=== PATIENT | male | born 1930 | race Caucasian/White ===

== ENCOUNTER 2017-04-18 09:38 | Outpatient (CLI) | payer MEDICARE ==
--- NOTE | 2017-05-13 14:14 | EEG ---
Referring Physician: DR. MARYCRUZ MIRANDA EEG # [id number] PROCEDURE: Outpatient electroencephalogram NAME OF PATIENT: Drew Hernandez DATE EEG DONE: 04/18/2017. INDICATION: New onset seizure EEG CLASSIFICATION: DYS 1, mild diffuse slowing REPORT: This is a 22-channel digital EEG recording utilizing 10-20 international electrode placement system on a patient who presents with new onset seizure with history of stroke with left-sided weakness. During wakefulness, the background activity consists predominantly of low to moderate amplitude dominant theta rhythm, 6-7 Hz. It is symmetric and reactive. This activity is penetrated occasionally by low amplitude fast beta activity and with myogenic activity representing frontalis and temporalis muscles bilaterally. DROWSINESS AND SLEEP: Subject is able to attain some drowsiness with slower theta activity and delta activity. There is no sleep recorded during this EEG. There is no consistent asymmetry or paroxysmal activity noted. INDUCTION: HYPERVENTILATION: Could not be performed. PHOTIC STIMULATION: No photic drive seen. EKG: Irregular IMPRESSION: This EEG is considered abnormal. There is mild, diffuse cerebral dysfunction noted, diffuse organic encephalopathy should be ruled out, this could be age related as well. However, there is no clear epileptiform activity or focal abnormality noted. No electrographic seizures noted. Clinical correlation recommended. Flexographic Press Plate Setter: CAMPBELL Track Coach: EEG.[email or web address] SILVA
== END 2017-04-18 09:39 | disposition home or self-care (01) ==
LOC: EEG 09:38
PROVIDERS: ATTEND Student in an Organized Health Care Education/Training Program
DX: R56.9 Unspecified convulsions (principal); Z86.73 Personal history of transient ischemic attack (TIA), and cerebral infarction without residual deficits
CPT/HCPCS: 95816

== ENCOUNTER 2017-06-08 14:04 | Inpatient (IN) | payer MEDICARE ==
[2017-06-08 14:34] LABS: Actual Bicarbonate (HCO3a) 23.4 mEq/L (22-26); Base Excess (BEa) -1.4 mEq/L (0 (+/-) 2.5); CO2 Tension 39.6 mmHg (35.0-45.0); Hematocrit-ABG 32.3 % (42.0-52.0); Hemoglobin (Hb) 10.1 g/dL (14.0-18.0); O2 Tension (PaO2) 72.3 mmHg (80.0-100.0); pH, Arterial 7.39 (7.35-7.45)
[2017-06-08 14:35] LABS: Analyzer IN Cardio ER; Calcium, Ionized 1.2 mmol/L (1.12-1.30); Puncture Site RRA
[2017-06-08 14:40] LABS: #Eosinphils 0.1 thou/uL (0.0-0.7); #Lymphocytes 0.8 thou/uL (1.20-3.40); #Monocytes 0.3 thou/uL (0.11-0.59); #Neutrophils 3.2 thou/uL (1.40-6.50); %Basophils 0.8 % (0.0-1.0); %Eosinophils 1.5 % (0.0-10.0); %Lymphocytes 17.8 % (21.0-51.0); %Monocytes 7.2 % (0.0-10.0); %Neutrophils 72.8 % (42.0-75.0); Hemoglobin 10.7 g/dL (14.0-18.0); Mean Corpuscular HGB CONC 32.1 g/dL (32.0-36.0); Mean Corpuscular Hemoglobin 29.1 pg (27.0-31.0); Mean Corpuscular Volume 90.6 fl (80.0-94.0); Mean Platelet Volume 7.6 fL (7.4-10.4); Platelet Count 157 thou/uL (130-400); RBC Distribution Width 14.2 % (11.5-14.5); Red Blood Cell (RBC) Count 3.68 mill/uL (4.70-6.10); White Blood Cell (WBC) Count 4.5 thou/uL (4.8-10.8)
[2017-06-08 14:45] LABS: INR-International Normal Ratio 1.1; Prothrombin Time 14.3 SEC (12.0-14.7)
[2017-06-08 14:46] LABS: PTT 33.5 SEC (22.9-36.1)
[2017-06-08 15:01] LABS: ALT (SGPT) 14 U/L (8-55); AST (SGOT) 14 U/L (5-34); Albumin 3.5 g/dL (3.4-4.8); Alkaline Phosphatase 91 U/L (40-150); Anion Gap 13 mmol/L (10-20); BUN (Urea Nitrogen) 41 mg/dL (8.4-25.7); Bilirubin, Total 0.4 mg/dL (0.2-1.2); CK (CPK) 29 U/L (30-200); Calc. Creatinine Clearance 0 mL/min (70-130); Calcium 8.9 mg/dL (7.8-10.44); Carbon Dioxide 26 mmol/L (23-31); Chloride 105 mmol/L (98-107); Estimated GFR-MDRD 38; Globulin 2.9 g/dL (2.4-3.5); Glucose 131 mg/dL (83-110); Lipase 31 U/L (8-78); Potassium 4.1 mmol/L (3.5-5.1); Protein, Total 6.4 g/dL (5.8-8.1); Sodium 140 mmol/L (136-145)
[2017-06-08 15:05] LABS: CKMB 1.2 ng/mL (0-6.6); Troponin I 0.034 ng/mL (< 0.028)
[2017-06-08 15:37] LABS: Bilirubin Negative (Negative); Blood, Urine Negative (Negative); Clarity CLEAR (Clear); Glucose, Urine (Dipstick) Negative (Negative); Leukocyte Negative (Negative); Nitrite Negative (Negative); Protein, Urine (Dipstick) Negative (Neg-Trace); Specific Gravity, Urine 1.016 (1.002-1.036); Urobilinogen 0.2 mg/dL (0.2-1.0); pH, Urine 5.5 (5.0-9.0)
--- NOTE | 2017-06-08 15:44 | RAD ---
UPRIGHT PORTABLE CHEST 1 VIEW: HISTORY: An 86-year-old male with a history of dyspnea, sleep apnea, history of CVAs with left-sided weakness. COMPARISON: 03/08/17. FINDINGS: There is some rotation to the left. Bilateral pleural effusions and bibasilar pleural and parenchyma l changes are noted more marked in the right base with little change from prior study. The mid and u pper lung zones appear clear other than some bilateral vascular congestion. IMPRESSION: Persistent but overall stable bilateral pleural effusions and bibasilar pulmonary and parenchymal gregorio nges. Bilateral vascular congestion without overt acute process. Cardiomegaly with aortic valvular endostent. No overt new process. POS: [facility]
--- NOTE | 2017-06-08 15:46 | CT ---
BRAIN CT WITHOUT IV CONTRAST: HISTORY: An 86-year-old male with altered mental status. COMPARISON: 03/08/17. FINDINGS: Marked bilateral atrophy and chronic white matter ischemic changes. The chronic white matter ischemi c changes in the right periventricular and centrum semiovale region appears to be somewhat more marke d than on the prior study. No focal mass or midline shift. No intra- or extraaxial hemorrhage. The re is sclerosis of the left mastoid. This appears stable. IMPRESSION: No mass or bleed or other acute process. Atrophy and chronic white matter ischemic changes somewhat more marked than on prior study. POS: [facility]
[2017-06-08] MEDS ORDERED: Fosphenytoin Sodium 1,500 MG in Sodium Chloride 0.9% 50 ML IVPB SCH (16:00)
[2017-06-08] MEDS ORDERED: Lorazepam 2 MG/ML VIAL SLOW IVP PRN (17:12)
[2017-06-08] MEDS ORDERED: Dextrose 5% in Water 1,000 ML IV PRN (17:23)
[2017-06-08] MEDS ORDERED: Dextrose 50% Abboject 50 ML SYRINGE SLOW IVP PRN (17:23)
[2017-06-08] MEDS ORDERED: HumaLOG 300 UNITS/3 ML VIAL SC PRN (17:48)
--- NOTE | 2017-06-08 17:53 | PDOC.EVN ---
Attending Addendum - Attending Addendum I personally evaluated the patient and discussed the management with Dr. Nguyễn. I agree with the History, Examination, Assessment and Plan documented in her H& P with any addition or exceptions noted below. Patient with history of CVA with L sided deficits, as well as seizure in 03/2017 , presenting to ER after found to be confused and altered at home. Per family, patient was unattended for a period of time, and when they checked on him he was confused and overall nonverbal. EMS was called and he was found to be hypoxic, degree unknown. Upon arrival to the ER, patient was confused. He eventually had a 10 minute episode of generalized tonic clonic seizure activity per the ERMD. He was loaded with Fosphenytoin. Currently, he is confused and overall nonverbal, though will respond to stimuli and tries to produce words. Family reports he is not at his baseline. Prolactin elevated, and most other labs either normal or at their chronic levels. CT brain and CXR overall non revealing for etiology. He had MRI in 03/2017 after last seizure that did not reveal any serious pathology. Neuro recommended at that time against starting antiepileptic therapy, but could be started if he had another seizure episode. Patient to be admitted to the hospital to stroke unit. Continue seizure precautions. Patient will be started on Keppra therapy and Neuro will be consulted. No indication to repeat imaging at this time. He will need formal swallow eval as at the time of my exam he is not safe for PO intake. Monitor to ensure no infection, toxic encephalopathy, or other could be the cause of his acute change in baseline.
[2017-06-08] MEDS ORDERED: Furosemide 40 MG/4 ML VIAL SLOW IVP SCH (18:00)
[2017-06-08 18:37] LABS: Troponin I 0.051 ng/mL (< 0.028)
[2017-06-08] MEDS ORDERED: levETIRAcetam 500 MG TAB PO SCH (21:00)
[2017-06-08 21:15] LABS: Troponin I 0.035 ng/mL (< 0.028)
[2017-06-08] MEDS: Simvastatin 20 MG TAB PO SCH (21:19)
[2017-06-09 05:40] LABS: #Basophils 0.1 thou/uL (0.0-0.2); #Eosinphils 0.1 thou/uL (0.0-0.7); #Monocytes 0.5 thou/uL (0.11-0.59); #Neutrophils 2.7 thou/uL (1.40-6.50); %Eosinophils 3.1 % (0.0-10.0); %Lymphocytes 21.9 % (21.0-51.0); Hemoglobin 10.6 g/dL (14.0-18.0); Mean Corpuscular HGB CONC 32.6 g/dL (32.0-36.0); Mean Corpuscular Hemoglobin 29.3 pg (27.0-31.0); Mean Corpuscular Volume 89.7 fl (80.0-94.0); Mean Platelet Volume 8.1 fL (7.4-10.4); Platelet Count 168 thou/uL (130-400); RBC Distribution Width 14.2 % (11.5-14.5); Red Blood Cell (RBC) Count 3.61 mill/uL (4.70-6.10); White Blood Cell (WBC) Count 4.5 thou/uL (4.8-10.8)
[2017-06-09 05:53] LABS: Anion Gap 12 mmol/L (10-20); BUN (Urea Nitrogen) 39 mg/dL (8.4-25.7); Calc. Creatinine Clearance 40 mL/min (70-130); Calcium 8.9 mg/dL (7.8-10.44); Carbon Dioxide 27 mmol/L (23-31); Chloride 107 mmol/L (98-107); Estimated GFR-MDRD 43; Glucose 112 mg/dL (83-110); Potassium 3.5 mmol/L (3.5-5.1); Sodium 142 mmol/L (136-145)
--- NOTE | 2017-06-09 07:04 | HP-2 ---
DATE OF ADMISSION: 06/08/2017 CODE STATUS: DNR. PRIMARY CARE PHYSICIAN: Dr. Mc. ATTENDING: Dr. Garcia. RESIDENT: Dr. Nguyễn. HISTORIAN: Son. CHIEF COMPLAINT: Hypoxia and altered mental status. HISTORY OF PRESENT ILLNESS: This is an 86-year-old male with past medical history of CVA, PA, hypert ension, diabetes type 2, and CHF, who presents with altered mental status. His daughter noticed at n oon that he was not very aware, alert. She called EMS and they found that he was hypoxic to the 60s. He has had a little cough that he always has, like he was clearing his throat, but no other signs o f fever or complaining of any other trouble breathing or chest pain. While in the ED, the patient tripathi d a witnessed tonic clonic seizure that lasted for 10 minutes. His sats dropped to 51% and he turned cyanotic. He was put on 100% oxygen and his sats improved. In the ER, he was loaded with fosphenyt oin 1500 mg IVPB. PAST MEDICAL HISTORY: 1. Cerebrovascular accident with residual left-sided weakness. 2. Congestive heart failure, ejection fraction of 40-45% in 10/2016. 3. Myocardial infarction status post stent. 4. Diabetes type 2. 5. Hypertension. 6. Benign prostatic hypertrophy. PAST SURGICAL HISTORY: Cholecystectomy and hernia repair. ALLERGIES: No known drug allergies. MEDICATIONS: 1. Finasteride 5 mg daily. 2. Furosemide 40 mg in a.m. and 20 mg p.m. 3. Spironolactone 12.5 mg daily. 4. Aspirin 81 mg daily. 5. Mag 64 mg daily. 6. Tramadol 50 mg q.6 hours p.r.n. 7. Seroquel 25 mg at bedtime. 8. Tamsulosin 0.4 mg daily. 9. Simvastatin 20 mg daily. 10. Glipizide 5 mg in a.m. and 2.5 mg in p.m. FAMILY HISTORY: Two daughters with seizures and father pancreatic cancer. Mother with leukemia. SOCIAL HISTORY: Denies tobacco, alcohol, or drug use, is unable to ambulate. REVIEW OF SYSTEMS: Unable to obtain secondary to postictal state. PHYSICAL EXAMINATION: VITAL SIGNS: Blood pressure 154/88, pulse 94, respiratory rate 19, temperature 97.5, pulse ox 100% o n nonrebreather was 51% during seizure. Current weight 87.5 kilograms. GENERAL: Drowsy, not oriented. Appears postictal. No acute distress, obese, not appropriately inte ractive. EYES: PERRLA. Extraocular muscles intact. Conjunctivae within normal limits. NECK: Supple, no lymphadenopathy. CARDIOVASCULAR: Irregularly irregular. No murmurs, gallops, 2+ radial and pedal pulses. RESPIRATORY: Normal effort on nonrebreather. No retractions or rales bilaterally. SKIN: Warm, dry. No cyanosis or lesions. ABDOMEN: Soft, nontender to palpation, normoactive bowel sounds. No mass or distention. EXTREMITIES: No cyanosis or edema. MUSCULOSKELETAL: Structure and tone within normal limits. NEUROLOGIC: No focal deficits. LABORATORY DATA: WBC 4.5, hemoglobin 10.7, hematocrit 33.4, platelets 157. Sodium 140, potassium 4. 1, chloride 105, CO2 of 26, BUN 41, creatinine 1.7, GFR 38, glucose 131. Troponin 0.034, AST 14, ALT 14, alkaline phosphatase 90, T-bilirubin 0.4, calcium 8.9. Influenza A and B negative. Ammonia 18. PT 14.3, INR 1.1, PTT 33.5. BNP 489.4. TSH 2.9155. Urinalysis negative. ABG with pH of 7.39, pC O2 of 39.6, pO2 of 72.3. EKG showed atrial fibrillation and prolonged QTC. Chest x-ray showed persi stent, but stable, bilateral pleural effusions, bibasilar parenchymal changes, bilateral vascular con gestion and cardiomegaly. Brain CT showed no acute process in atrophy and chronic white matter ische zena changes. ASSESSMENT AND PLAN: This 82-year-old male, who presents with: 1. Tonic clonic seizure. The patient had his first seizure in March and was not found to have an y organic cause at that time. He was followed by Dr. Arizmendi, but not put on any antiepileptic at that time due to being his first seizure, consulted Dr. Arizmendi and he wants to start the patient on Keppra 5 00 mg b.i.d. We will do neuro checks q.4 hours, seizure precautions, n.p.o. pending, dysphagia scree ns, speech evaluation and oxygen as needed for hypoxia. 2. Indeterminate troponins. The patient's chest pain is likely secondary to demand ischemia from th e seizure. We will trend q.3 hours and monitor on tele. 3. Prolonged QTC. We will hold Seroquel and monitor. 4. Congestive heart failure. Ejection fraction of 40-45%. Strict I's and O's, fluid restriction, d aily weights. Continue Lasix. 5. History of cerebrovascular accident. We will continue home medications. 6. Diabetes type 2. Will treat with sliding scale insulin and continue glipizide once the patient i s tolerating p.o. medications. Accu-Cheks a.c. and at bedtime and consistent carbohydrate diet. 7. Hypertension. Continue home medications. 8. Benign prostatic hypertrophy. Continue home medications. 9. Venous thromboembolism prophylaxis, sequential compression devices. DISPOSITION: Admit to stroke. Symptomatic medication will be provided. History and physical exam as well as management discussed with Dr. Garcia.
--- NOTE | 2017-06-09 07:18 | PDOC.FM ---
- Subjective Subjective: Patient still nonverbal this morning. He is making noises when asked questions, but no discernible yes or no response. VSS, afebrile - Objective MAR Reviewed: Yes Vital Signs & Weight: Vital Signs (12 hours) Temp Pulse Resp BP Pulse Ox 06/09/17 04:00 97.4 F L 65 18 135/72 96 06/09/17 00:00 97.9 F 83 18 138/84 98 06/08/17 20:00 97.7 F 86 14 98 06/08/17 19:57 97.7 F 86 14 136/63 98 Weight Weight 81.448 kg I&O: 06/08/17 06/09/17 06/10/17 06:59 06:59 06:59 Intake Total 110 Balance 110 Result Diagrams: 06/09/17 05:21 06/09/17 05:21 <Micky Mendez C - Last Filed: 06/09/17 07:16> - Objective Vital Signs & Weight: Vital Signs (12 hours) Temp Pulse Resp BP Pulse Ox 06/09/17 07:20 97.9 F 76 16 131/69 98 06/09/17 04:00 97.4 F L 65 18 135/72 96 06/09/17 00:00 97.9 F 83 18 138/84 98 Weight Weight 81.448 kg I&O: 06/08/17 06/09/17 06/10/17 06:59 06:59 06:59 Intake Total 110 Balance 110 Result Diagrams: 06/09/17 05:21 06/09/17 05:21 <Pierre Garcia - Last Filed: 06/09/17 10:02> Phys Exam - Physical Examination HEENT: moist MMs Neck: no JVD Respiratory: no wheezing, no rales Cardiovascular: RRR, no significant murmur Gastrointestinal: soft, non-tender contracture of LUE/hand 2/2 prior CVA <Micky Mendez - Last Filed: 06/09/17 07:16> Dx/Plan (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, NOT INTRACTABLE, W/O STAT EPI Status: Acute Plan: History of prior seizure in March of last year He is pending a bedside swallow evaluation Neurology has been consulted, awaiting recommendations PT/OT/Speech (2) Diastolic heart failure Code(s): I50.30 - UNSPECIFIED DIASTOLIC (CONGESTIVE) HEART FAILURE Status: Chronic Plan: EF of 45% I/O's, daily weights, Lasix (3) CKD (chronic kidney disease) stage 3, GFR 30-59 ml/min Status: Chronic Plan: BUN at baseline and Cr has improved since admission Monitor and trend (4) DMII (diabetes mellitus, type 2) Status: Chronic QualifierTitle: Diabetes mellitus complication status: without complication Diabetes mellitus panel instrument repairer insulin use: without detention use Qualified Code(s): E11.9 - Type 2 diabetes mellitus without complications Plan: Hold PO meds until speech eval SSI and accuchecks (5) Hypertension Code(s): I10 - ESSENTIAL (PRIMARY) HYPERTENSION Status: Chronic QualifierTitle: Hypertension type: essential hypertension Qualified Code( s): I10 - Essential (primary) hypertension Plan: Continue home medications (6) Prolonged QT interval Code(s): R94.31 - ABNORMAL ELECTROCARDIOGRAM [ECG] [EKG] Status: Chronic Plan: Hold seroquel and monitor (7) BPH (benign prostatic hyperplasia) Code(s): N40.0 - BENIGN PROSTATIC HYPERPLASIA WITHOUT LOWER URINRY TRACT SYMP Status: Chronic Plan: Continue flomax - Plan Plan: Neuro recommendations Speech evaluation <Micky Mendez C - Last Filed: 06/09/17 07:16> Attending Addendum - Attending Addendum I personally evaluated the patient and discussed the management with Dr. Mendez. I agree with the History, Examination, Assessment and Plan documented above with any addition or exceptions noted below. Patient more conversive this morning and is A&Ox4 at reexamination. Does not appear to be postictal. No further seizure activity with Keppra therapy. No etiology discovered yet. Continue Keppra, will obtain EEG, and awaiting further recs from Neuro. <Pierre Garcia - Last Filed: 06/09/17 10:02>
[2017-06-09] MEDS ORDERED: Furosemide 40 MG TAB PO SCH (09:00)
[2017-06-09] MEDS ORDERED: Prevnar 13-Val Conj/PF 0.5 ML SYRINGE IM ONE (09:00)
[2017-06-09] MEDS ORDERED: FLU VACC TS2017-18 (>65YR) 0.5 ML SYRINGE IM ONE (09:00)
[2017-06-09 10:27] VITALS: BMI 31.2
[2017-06-09] MEDS: Spironolactone 25 MG TAB PO SCH (11:00)
[2017-06-09] MEDS: Furosemide 40 MG TAB PO SCH (11:00)
[2017-06-09] MEDS: Tamsulosin HCl 0.4 MG CAP PO SCH (11:01)
[2017-06-09] MEDS: Finasteride 5 MG TAB PO SCH (11:01)
[2017-06-09] MEDS: Furosemide 20 MG TAB PO SCH (14:02)
[2017-06-09] MEDS ORDERED: Acetaminophen 325 MG TAB PO PRN (14:15)
[2017-06-09] MEDS: Simvastatin 20 MG TAB PO SCH (20:25)
--- NOTE | 2017-06-09 23:50 | CON ---
DATE OF CONSULTATION: 06/09/2017 REFERRING PROVIDER: Dr. Renae Nguyễn. REASON FOR CONSULTATION: Seizure. HISTORY OF PRESENT ILLNESS: Mr. Hernandez is a pleasant 86-year-old male , who has been consulted for evaluation of seizure. History is very limited as there is a family member present at bedside and the patient is unable to provide any history, thus most of the history is obtained from the patient's medical chart. According to the dictated H&P note, patient has multiple medical problems including history of hypertension, diabetes, CHF, history of stroke, and GA, who was witnessed by daughter to have altered mental status. EMS was called and he was found to be hypoxic into the 60s. On arrival to the emergency room, he was witnessed to have a tonic clonic seizure that lasted approximately 10 minutes. His sats had dropped to 51% and it turned cyanotic. He was put on 100% oxygen and his saturation had improved. He was loaded with fosphenytoin 15 mg IV in the ER. At that time, I was being asked to further evaluate and apparently he had presented on 03/08/2017 with similar episode. During that admission, I had seen him and felt that his seizure may have been secondary to hypoxia. He was not started on any antiepileptic medication at that time as that was the first episode. He did have an EEG done as an outpatient recently on 05/2017, which showed mild diffuse cerebral dysfunction without any epileptiform discharges or focal abnormality. PAST MEDICAL HISTORY: Significant for hypertension, diabetes, history of stroke resulting in left-sided weakness, congestive heart failure, history of GA , and BPH. PAST SURGICAL HISTORY: Significant for cholecystectomy and hernia repair. CURRENT MEDICATIONS: Please review MAR. ALLERGIES: No known drug allergies. FAMILY HISTORY: Noncontributory. SOCIAL HISTORY: He does not smoke cigarettes, drink alcohol or use illicit drugs. REVIEW OF SYSTEMS: Unable to perform. PHYSICAL EXAMINATION: VITAL SIGNS: Blood pressure of 115/75, pulse is 76, temperature 97.6, respirations of 18, O2 sats of 100% on room air. GENERAL: Well-developed, well-nourished male, somewhat obtunded, in no apparent distress. RESPIRATORY: Clear to auscultation bilaterally. CARDIOVASCULAR: Regular rate rhythm. NEUROLOGIC: Mental status: The patient is somewhat obtunded. He does wake up to verbal stimuli and able to answer a few questions and then falls back asleep. He is very difficult to keep arouse. Speech and language appears fluent when he does provide information. Cranial nerves: Pupils are 3 mm and reactive. He blinks to threat on both sides. Face appears symmetric. Unable to visualize tongue or uvula. Motor exam showed normal tone and bulk. He moves both upper and lower extremities with spontaneously. He does not follow any commands. He withdraws to pain on both upper and lower extremities. Babinski: Plantar responses flexion bilaterally. Gait and Romberg coordination could not be tested. LABORATORY DATA: Reviewed, which included CBC, coag panel, CMP, troponin, urinalysis, and ABG, which is significant for WBC of 4.5, hemoglobin of 10.6, hematocrit 32.4, pH of 7.39, pO2 of 72.3, pCO2 of 39.6, bicarbonate of 23.4, BUN of 39, creatinine 1.56, glucose 151, BNP of 49.4, and troponin of 0.035 that was unremarkable. IMAGING STUDIES: CT head without contrast was reviewed, which showed no acute intracranial abnormality. IMPRESSION: 1. Generalized tonic-clonic seizure. 2. Hypoxia. Mr. Hernandez is a pleasant 86-year-old male, who presented with hypoxic event, followed by generalized tonic clonic seizure. At this time, I would recommend starting patient on Keppra 500 mg b.i.d. for seizures. I will repeat EEG on Saturday morning. Continue current medical management. Continue supportive care. Thank you for your consultation. RICARDO
[2017-06-10 05:43] LABS: #Basophils 0.1 thou/uL (0.0-0.2); #Eosinphils 0.1 thou/uL (0.0-0.7); #Monocytes 0.5 thou/uL (0.11-0.59); #Neutrophils 3.4 thou/uL (1.40-6.50); %Eosinophils 2.2 % (0.0-10.0); %Lymphocytes 19.6 % (21.0-51.0); %Monocytes 10.2 % (0.0-10.0); Hemoglobin 10.9 g/dL (14.0-18.0); Mean Corpuscular HGB CONC 32.7 g/dL (32.0-36.0); Mean Corpuscular Hemoglobin 29.2 pg (27.0-31.0); Mean Corpuscular Volume 89.5 fl (80.0-94.0); Mean Platelet Volume 7.9 fL (7.4-10.4); Platelet Count 163 thou/uL (130-400); RBC Distribution Width 14.2 % (11.5-14.5); Red Blood Cell (RBC) Count 3.72 mill/uL (4.70-6.10); White Blood Cell (WBC) Count 5.1 thou/uL (4.8-10.8)
[2017-06-10 06:22] LABS: Anion Gap 13 mmol/L (10-20); BUN (Urea Nitrogen) 38 mg/dL (8.4-25.7); Calc. Creatinine Clearance 39 mL/min (70-130); Carbon Dioxide 25 mmol/L (23-31); Chloride 109 mmol/L (98-107); Estimated GFR-MDRD 43; Glucose 162 mg/dL (83-110); Potassium 3.4 mmol/L (3.5-5.1); Sodium 144 mmol/L (136-145)
[2017-06-10] MEDS ORDERED: Potassium Chloride 40 MEQ in Sodium Chloride 0.9% 250 ML 250 ML IVPB SCH (07:00)
--- NOTE | 2017-06-10 08:28 | PDOC.FM ---
- Subjective Subjective: Patient eating breakfast this morning with nursing. No acute events overnight. VSS, afebrile - Objective MAR Reviewed: Yes Vital Signs & Weight: Vital Signs (12 hours) Temp Pulse Resp BP Pulse Ox 06/10/17 08:00 97.1 F L 80 22 H 146/84 H 97 06/10/17 04:00 98.0 F 76 20 142/82 H 96 Weight Weight 80.059 kg I&O: 06/09/17 06/10/17 06/11/17 06:59 06:59 06:59 Intake Total 110 600 Balance 110 600 Result Diagrams: 06/10/17 05:20 06/10/17 05:20 <Micky Mendez - Last Filed: 06/10/17 08:26> - Objective Vital Signs & Weight: Vital Signs (12 hours) Temp Pulse Resp BP Pulse Ox 06/10/17 11:49 98.2 F 87 18 121/81 98 06/10/17 08:15 97.1 F L 80 22 H 97 06/10/17 08:00 97.1 F L 80 22 H 146/84 H 97 06/10/17 04:00 98.0 F 76 20 142/82 H 96 Weight Weight 80.059 kg I&O: 06/09/17 06/10/17 06/11/17 06:59 06:59 06:59 Intake Total 110 600 Balance 110 600 Result Diagrams: 06/10/17 05:20 06/10/17 05:20 <Thom Hubbard - Last Filed: 06/10/17 12:11> Phys Exam - Physical Examination Constitutional: NAD Respiratory: no wheezing, no rales Cardiovascular: RRR, no significant murmur Gastrointestinal: soft, non-tender left sided contracture 2/2 prior CVA Psychiatric: normal affect <Micky Mendez - Last Filed: 06/10/17 08:26> Dx/Plan (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, NOT INTRACTABLE, W/O STAT EPI Status: Acute Plan: History of prior seizure in March of last year Neurology has evaluated patient and recommends Keppra 500mg BID EEG pending (2) Diastolic heart failure Code(s): I50.30 - UNSPECIFIED DIASTOLIC (CONGESTIVE) HEART FAILURE Status: Chronic Plan: EF of 45% I/O's, daily weights, Lasix (3) CKD (chronic kidney disease) stage 3, GFR 30-59 ml/min Status: Chronic Plan: BUN at baseline and Cr has improved since admission Monitor and trend Cr: 1.55 this AM (4) DMII (diabetes mellitus, type 2) Status: Chronic QualifierTitle: Diabetes mellitus complication status: without complication Diabetes mellitus senior living insulin use: without joint terminal attack controller use Qualified Code(s): E11.9 - Type 2 diabetes mellitus without complications Plan: Continue home medications SSI and accuchecks (5) Hypertension Code(s): I10 - ESSENTIAL (PRIMARY) HYPERTENSION Status: Chronic QualifierTitle: Hypertension type: essential hypertension Qualified Code( s): I10 - Essential (primary) hypertension Plan: Continue home medications Well controlled overnight (6) Prolonged QT interval Code(s): R94.31 - ABNORMAL ELECTROCARDIOGRAM [ECG] [EKG] Status: Chronic Plan: Hold seroquel and monitor (7) BPH (benign prostatic hyperplasia) Code(s): N40.0 - BENIGN PROSTATIC HYPERPLASIA WITHOUT LOWER URINRY TRACT SYMP Status: Chronic Plan: Continue flomax - Plan Plan: Plan: -continue seizure precautions -Keppra 500 BID -EEG today, pending further neuro recs <Micky Mendez - Last Filed: 06/10/17 08:26> Attending Addendum - Attending Addendum I personally evaluated the patient and discussed the management with Dr. Mendez. I agree with and repeated the History, Examination, Assessment and Plan documented above with any addition or exceptions noted below. Patient sleeping when I entered. Limited exam as he did not want to answer many questions, but denies cp/sob/n/v/f/c. RRR s M CTAB s wheeze BS+, NTTP, no palp organomegaly Agree with plan. Await neuro workup. Neurochecks while in house. <Thom Hubbard - Last Filed: 06/10/17 12:11>
[2017-06-10] MEDS: Furosemide 40 MG TAB PO SCH (09:50)
[2017-06-10] MEDS: Spironolactone 25 MG TAB PO SCH (09:51)
[2017-06-10] MEDS: Tamsulosin HCl 0.4 MG CAP PO SCH (09:52)
[2017-06-10] MEDS: Finasteride 5 MG TAB PO SCH (09:52)
[2017-06-10] MEDS: Furosemide 20 MG TAB PO SCH (13:57)
[2017-06-10] MEDS: Simvastatin 20 MG TAB PO SCH (20:20)
[2017-06-11 05:46] LABS: #Basophils 0.1 thou/uL (0.0-0.2); #Eosinphils 0.2 thou/uL (0.0-0.7); #Lymphocytes 1.4 thou/uL (1.20-3.40); #Monocytes 0.6 thou/uL (0.11-0.59); #Neutrophils 3.1 thou/uL (1.40-6.50); %Basophils 0.9 % (0.0-1.0); %Eosinophils 4.2 % (0.0-10.0); %Lymphocytes 25.8 % (21.0-51.0); %Monocytes 10.5 % (0.0-10.0); %Neutrophils 58.5 % (42.0-75.0); Hemoglobin 11.3 g/dL (14.0-18.0); Mean Corpuscular HGB CONC 31.7 g/dL (32.0-36.0); Mean Corpuscular Hemoglobin 28.6 pg (27.0-31.0); Mean Corpuscular Volume 90.1 fl (80.0-94.0); Mean Platelet Volume 7.9 fL (7.4-10.4); Platelet Count 164 thou/uL (130-400); RBC Distribution Width 14.3 % (11.5-14.5); Red Blood Cell (RBC) Count 3.94 mill/uL (4.70-6.10); White Blood Cell (WBC) Count 5.4 thou/uL (4.8-10.8)
[2017-06-11 06:19] LABS: Anion Gap 12 mmol/L (10-20); BUN (Urea Nitrogen) 33 mg/dL (8.4-25.7); Calc. Creatinine Clearance 4405 mL/min (70-130); Calcium 8.9 mg/dL (7.8-10.44); Carbon Dioxide 27 mmol/L (23-31); Chloride 111 mmol/L (98-107); Estimated GFR-MDRD 47; Glucose 154 mg/dL (83-110); Potassium 3.4 mmol/L (3.5-5.1); Sodium 147 mmol/L (136-145)
--- NOTE | 2017-06-11 08:17 | PDOC.FM ---
- Subjective Subjective: Patient awake in no acute distress this morning. No acute events overnight. Patient is A&Ox2. Still awaiting further Neuro recommendations after EEG yesterday - Objective MAR Reviewed: Yes Vital Signs & Weight: Vital Signs (12 hours) Temp Pulse Resp BP Pulse Ox 06/11/17 07:48 97.7 F 76 18 140/88 95 06/11/17 03:25 97.8 F 83 20 130/80 94 L 06/10/17 23:34 97.9 F 92 18 130/86 97 Weight Weight 8304.369 kg I&O: 06/10/17 06/11/17 06/12/17 06:59 06:59 06:59 Intake Total 600 Balance 600 Result Diagrams: 06/11/17 05:25 06/11/17 05:25 <Micky Mendez - Last Filed: 06/11/17 08:15> - Objective Vital Signs & Weight: Vital Signs (12 hours) Temp Pulse Resp BP Pulse Ox 06/11/17 07:48 97.7 F 76 18 140/88 95 06/11/17 03:25 97.8 F 83 20 130/80 94 L Weight Weight 8304.369 kg I&O: 06/10/17 06/11/17 06/12/17 06:59 06:59 06:59 Intake Total 600 Balance 600 Result Diagrams: 06/11/17 05:25 06/11/17 05:25 <Thom Hubbard - Last Filed: 06/11/17 11:39> Phys Exam - Physical Examination Constitutional: NAD dry mucous membranes Respiratory: no wheezing, no rales Cardiovascular: RRR, no significant murmur Gastrointestinal: soft, non-tender Musculoskeletal: no edema Psychiatric: normal affect Deviation from normal: A&Ox2 <Micky Mendez - Last Filed: 06/11/17 08:15> Dx/Plan (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, NOT INTRACTABLE, W/O STAT EPI Status: Acute Plan: History of prior seizure in March of last year Neurology has evaluated patient and recommends Keppra 500mg BID EEG ordered yesterday by neurology -further recs pending read (2) Diastolic heart failure Code(s): I50.30 - UNSPECIFIED DIASTOLIC (CONGESTIVE) HEART FAILURE Status: Chronic Plan: EF of 45% I/O's, daily weights, Lasix (3) CKD (chronic kidney disease) stage 3, GFR 30-59 ml/min Status: Chronic Plan: BUN at baseline and Cr has improved since admission Monitor and trend, improving daily Cr: 1.44 this AM (4) DMII (diabetes mellitus, type 2) Status: Chronic QualifierTitle: Diabetes mellitus complication status: without complication Diabetes mellitus termite renewal inspector insulin use: without termite renewal inspector use Qualified Code(s): E11.9 - Type 2 diabetes mellitus without complications Plan: Continue home medications SSI and accuchecks required no SSI yesterday (5) Hypertension Code(s): I10 - ESSENTIAL (PRIMARY) HYPERTENSION Status: Chronic QualifierTitle: Hypertension type: essential hypertension Qualified Code( s): I10 - Essential (primary) hypertension Plan: Continue home medications Well controlled overnight (6) Prolonged QT interval Code(s): R94.31 - ABNORMAL ELECTROCARDIOGRAM [ECG] [EKG] Status: Chronic Plan: Hold seroquel and monitor (7) BPH (benign prostatic hyperplasia) Code(s): N40.0 - BENIGN PROSTATIC HYPERPLASIA WITHOUT LOWER URINRY TRACT SYMP Status: Chronic Plan: Continue flomax - Plan Plan: Plan: -patient stable from a medical standpoint -no clear etiology for seizure has been identified at this time -EEG pending read <Micky Mendez - Last Filed: 06/11/17 08:15> Attending Addendum - Attending Addendum I personally evaluated the patient and discussed the management with Dr. Mendez. I agree with and repeated the History, Examination, Assessment and Plan documented above with any addition or exceptions noted below. Mr Hernandez is doing well today, he wants to go home. Denies cp/sob/n/v/f. He is still AOx2, but knows why he is in the hospital. NAD, interactive and upbeat. RRR s M, CTAB s wheeze, no focal deficits. Await EEG and neurology clearance for discharge. <Thom Hubbard - Last Filed: 06/11/17 11:39>
[2017-06-11] MEDS: Finasteride 5 MG TAB PO SCH (10:11)
[2017-06-11] MEDS: Furosemide 40 MG TAB PO SCH (10:11)
[2017-06-11] MEDS: Spironolactone 25 MG TAB PO SCH (10:11)
[2017-06-11] MEDS: Tamsulosin HCl 0.4 MG CAP PO SCH (10:12)
[2017-06-11] MEDS: Sodium Chloride 0.9% 1,000 ML IV SCH (15:21)
[2017-06-11] MEDS: Furosemide 20 MG TAB PO SCH (15:23)
[2017-06-11] MEDS: Simvastatin 20 MG TAB PO SCH (21:12)
[2017-06-12] MEDS: Sodium Chloride 0.9% 1,000 ML IV SCH ×3 (05:41→14:29)
[2017-06-12 05:49] LABS: #Basophils 0.1 thou/uL (0.0-0.2); #Eosinphils 0.3 thou/uL (0.0-0.7); #Lymphocytes 1.2 thou/uL (1.20-3.40); #Monocytes 0.6 thou/uL (0.11-0.59); #Neutrophils 2.9 thou/uL (1.40-6.50); %Basophils 1.1 % (0.0-1.0); %Eosinophils 5.9 % (0.0-10.0); %Monocytes 11.4 % (0.0-10.0); %Neutrophils 57.6 % (42.0-75.0); Hemoglobin 10.9 g/dL (14.0-18.0); Mean Corpuscular HGB CONC 32.1 g/dL (32.0-36.0); Mean Corpuscular Hemoglobin 29.2 pg (27.0-31.0); Mean Corpuscular Volume 91.1 fl (80.0-94.0); Mean Platelet Volume 7.7 fL (7.4-10.4); Platelet Count 155 thou/uL (130-400); RBC Distribution Width 14.3 % (11.5-14.5); Red Blood Cell (RBC) Count 3.73 mill/uL (4.70-6.10); White Blood Cell (WBC) Count 5.1 thou/uL (4.8-10.8)
[2017-06-12 06:17] LABS: Anion Gap 11 mmol/L (10-20); BUN (Urea Nitrogen) 30 mg/dL (8.4-25.7); Calc. Creatinine Clearance 4880 mL/min (70-130); Calcium 8.4 mg/dL (7.8-10.44); Carbon Dioxide 27 mmol/L (23-31); Estimated GFR-MDRD 52; Glucose 162 mg/dL (83-110)
[2017-06-12 06:37] VITALS: TEMP 97.6
[2017-06-12 06:40] LABS: Chloride 110 mmol/L (98-107); Potassium 3.5 mmol/L (3.5-5.1); Sodium 144 mmol/L (136-145)
--- NOTE | 2017-06-12 08:36 | PDOC.FM ---
- Subjective Subjective: Patient awake and conversant this morning. A&Ox2, which is baseline. Vital signs stable overnight, no acute events per nursing. - Objective MAR Reviewed: Yes Vital Signs & Weight: Vital Signs (12 hours) Temp Pulse Resp BP Pulse Ox 06/12/17 08:01 97.6 F 62 24 H 130/70 06/12/17 04:00 97.6 F 68 20 139/85 96 Weight Weight 8304.369 kg I&O: 06/11/17 06/12/17 06/13/17 06:59 06:59 06:59 Intake Total 3095 Balance 3095 Result Diagrams: 06/12/17 05:35 06/12/17 05:35 <Micky Mendez - Last Filed: 06/12/17 08:26> - Objective Vital Signs & Weight: Vital Signs (12 hours) Temp Pulse Resp BP Pulse Ox 06/12/17 11:09 97.6 F 76 20 122/74 06/12/17 08:01 97.6 F 62 24 H 130/70 06/12/17 08:00 97.6 F 62 24 H 96 06/12/17 04:00 97.6 F 68 20 139/85 96 Weight Weight 8304.369 kg I&O: 06/11/17 06/12/17 06/13/17 06:59 06:59 06:59 Intake Total 3095 Balance 3095 Result Diagrams: 06/12/17 05:35 06/12/17 05:35 <Thom Hubbard - Last Filed: 06/12/17 12:18> Phys Exam - Physical Examination Constitutional: NAD HEENT: moist MMs Respiratory: no wheezing, no rales Cardiovascular: RRR, no significant murmur Gastrointestinal: soft, non-tender Neurological: moves all 4 limbs Psychiatric: normal affect <Micky Mendez - Last Filed: 06/12/17 08:26> Dx/Plan (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, NOT INTRACTABLE, W/O STAT EPI Status: Acute Plan: History of prior seizure in March of last year Neurology has evaluated patient and recommends Keppra 500mg BID EEG ordered still pending read by neurology Likely d/c home with HH today (2) Diastolic heart failure Code(s): I50.30 - UNSPECIFIED DIASTOLIC (CONGESTIVE) HEART FAILURE Status: Chronic Plan: EF of 45% I/O's, daily weights, Lasix (3) CKD (chronic kidney disease) stage 3, GFR 30-59 ml/min Status: Chronic Plan: BUN at baseline and Cr has improved since admission Monitor and trend, improving daily Cr: 1.3 this AM (4) DMII (diabetes mellitus, type 2) Status: Chronic QualifierTitle: Diabetes mellitus complication status: without complication Diabetes mellitus fpc insulin use: without fpc use Qualified Code(s): E11.9 - Type 2 diabetes mellitus without complications Plan: Continue home medications SSI and accuchecks required no SSI yesterday (5) Hypertension Code(s): I10 - ESSENTIAL (PRIMARY) HYPERTENSION Status: Chronic QualifierTitle: Hypertension type: essential hypertension Qualified Code( s): I10 - Essential (primary) hypertension Plan: Continue home medications Well controlled overnight (6) Prolonged QT interval Code(s): R94.31 - ABNORMAL ELECTROCARDIOGRAM [ECG] [EKG] Status: Chronic Plan: Hold seroquel and monitor (7) BPH (benign prostatic hyperplasia) Code(s): N40.0 - BENIGN PROSTATIC HYPERPLASIA WITHOUT LOWER URINRY TRACT SYMP Status: Chronic Plan: Continue flomax - Plan Plan: Plan: -discharge today after speaking with Neurology -Continue Keppra <Micky Mendez - Last Filed: 06/12/17 08:26> Attending Addendum - Attending Addendum I personally evaluated the patient and discussed the management with Dr. Mendez. I agree with and repeated the History, Examination, Assessment and Plan documented above with any addition or exceptions noted below. Pt doing well, no complaints. Denies cp/sob/n/v/f/c. Exam unchanged. Plan for discharge today on Keppra. Follow up with Dr. Arizmendi as an outpatient. <Thom Hubbard - Last Filed: 06/12/17 12:18>
[2017-06-12] MEDS: Tamsulosin HCl 0.4 MG CAP PO SCH (09:34)
[2017-06-12] MEDS: Finasteride 5 MG TAB PO SCH (09:34)
[2017-06-12] MEDS: Spironolactone 25 MG TAB PO SCH (09:35)
[2017-06-12] MEDS: Furosemide 40 MG TAB PO SCH (09:35)
[2017-06-12 11:10] VITALS: BP 122/74
[2017-06-12] MEDS: Furosemide 20 MG TAB PO SCH (14:34)
--- NOTE | 2017-06-13 06:34 | DIS-2 ---
DATE OF ADMISSION: 06/08/2017. DATE OF DISCHARGE: 06/12/2017. RESIDENT: Micky Mendez MD ADMITTING ATTENDING: Pierre Garcia MD DISCHARGE ATTENDING: Thom Hubbard MD CONSULTATION: Neurology. PROCEDURES: 1. CT of the brain showing no mass or bleed or any other acute process. There is atrophy and chroni c white matter ischemic changes comparable to previous study. 2. EEG showing no seizure activity, essentially normal. PRIMARY DIAGNOSIS: Tonic-clonic seizure. SECONDARY DIAGNOSES: 1. Paroxysmal atrial fibrillation. 2. Chronic kidney disease, stage 3. 3. History of cerebrovascular accident with residual left-sided weakness. 4. Coronary artery disease. 5. Hypertension. 6. Diabetes type 2. 7. Congestive heart failure. 8. Benign prostatic hyperplasia. DISCHARGE MEDICATIONS: 1. Glipizide 2.5 mg p.o. at bedtime. 2. Aspirin 81 mg p.o. daily. 3. Aldactone 12.5 mg p.o. q.a.m. 4. Flomax 0.4 mg p.o. daily. 5. Simvastatin 20 mg p.o. q.p.m. 6. Seroquel 25 mg p.o. at bedtime. 7. Furosemide 20 mg p.o. at bedtime. 8. Furosemide 40 mg p.o. q.a.m. 9. Finasteride 5 mg p.o. daily. 10. Magnesium 64 mg p.o. b.i.d. 11. Keppra 500 mg p.o. b.i.d. DISCONTINUED MEDICATIONS: None. HISTORY OF PRESENT ILLNESS/HOSPITAL COURSE: An 86-year-old male presenting with altered mental statu s to the ED. The patient was witnessed in the ED to have a tonic-clonic seizure that lasted for appr oximately 10 minutes. His sats dropped to 51% and turned cyanotic. He was loaded with fosphenytoin 1500 mg IV before being transferred to the floor. Neurology was consulted and evaluated the patient by EEG. This is the patient's second witnessed sei zure. Suggested to continue Keppra therapy 500 mg p.o. b.i.d. indefinitely. He will be following up with Neurology for 6 weeks to evaluate efficacy. After being admitted, the patient returned to base line mental status function, which was A and O x2. His chronic medical conditions were well controll ed on home medications. CBC and BMP daily showed normal laboratory values. The patient's vital sign s were stable throughout admission. He was never febrile and had no leukocytosis. No clear etiology for the seizure was found. Metabolic derangements, infection were ruled out. This is likely in erika e way related to his hypoxia according to Neurology. The patient was stable upon discharge. DISPOSITION: Stable. DISCHARGE INSTRUCTIONS: 1. Location: Home. 2. Diet: Heart healthy. 3. Activity: As tolerated with home health. 4. Follow up with Dr. Thom Hubbard in 7 to 10 days and with Neurology in 4 to 6 weeks.
--- NOTE | 2017-06-19 09:53 | PQF ---
CRYSTAL BURCIAGA KARLA PALOMINO [id number] CLINICAL DOCUMENTATION CLARIFICATION FORM: POST DISCHARGE Addendum to original discharge summary DATE: 06/19/2017 ATTN: Dr. Palomino Please exercise your independent, professional judgment in responding to the clarification form. Clinical indicators are provided on the bottom of this form for your review Please check appropriate box(s): [x ] Acute Respiratory Failure with hypoxia [ ] Acute Respiratory Failure due to: (etiology) [ ] Hypoxia only [ ] Other diagnosis (please specify) [ ] Unable to determine For continuity of documentation, please document condition throughout progress notes and discharge summary. Thank You. CLINICAL INDICATORS - SIGNS / SYMPTOMS / LABS (per ED records/labs/chest xray)) Decreased oxygen saturation 51% with cyanosis/hypoxia in ED Hypoxic to 60's when EMS arrived at home. . PO2 72.3. Pulmonary vascular congestion CXR RISK FACTORS (per H&P/ED record) Tonic-clonic seizure. History of smoking/chewing tobacco. TREATMENTS: 100 % Oxygen in ED. Monitoring of oxygenation status ABG (on admission) (This form is maintained as a part of the permanent medical record) 2014 [employer]. All Rights Reserved Jenni [email or web address] [phone] MTDD
== END 2017-06-12 16:30 | disposition home health service (06) | DRG 100 ==
LOC: ERS 14:04 → ERHOLD 15:47 → 2SE 17:54
PROVIDERS: ADMIT Student in an Organized Health Care Education/Training Program; ATTEND Student in an Organized Health Care Education/Training Program
DX: G40.409 Other generalized epilepsy and epileptic syndromes, not intractable, without status epilepticus (principal); J96.01 Acute respiratory failure with hypoxia; I24.8 Other forms of acute ischemic heart disease; I13.0 Hypertensive heart and chronic kidney disease with heart failure and stage 1 through stage 4 chronic kidney disease, or unspecified chronic kidney disease; I50.32 Chronic diastolic (congestive) heart failure; I69.354 Hemiplegia and hemiparesis following cerebral infarction affecting left non-dominant side; E11.22 Type 2 diabetes mellitus with diabetic chronic kidney disease; I45.81 Long QT syndrome; I48.0 Paroxysmal atrial fibrillation; N18.3 Chronic kidney disease, stage 3 (moderate); N40.0 Benign prostatic hyperplasia without lower urinary tract symptoms; I25.10 Atherosclerotic heart disease of native coronary artery without angina pectoris; Z66 Do not resuscitate; Z87.891 Personal history of nicotine dependence; Z79.82 Long term (current) use of aspirin; Z79.84 Long term (current) use of oral hypoglycemic drugs; Z79.899 Other long term (current) drug therapy
CPT/HCPCS: 36415; 36416; 51701; 70450; 71045; 80048; 80053; 80061; 81003; 82140; 82550; 82553; 82805; 83690; 83735; 83880; 84146; 84443; 84484; 85025; 85610; 85730; 90471; 90670; 90682; 93005; 94760; 95816; 95819; 96365; A4216; G0008; G0009; G8996-GN-CL; G8997-GN-CK; J1940; J1953; J3480; J7050; Q2009; Q2036

== ENCOUNTER 2017-07-01 18:31 | Emergency (ER) | payer MEDICARE ==
[2017-07-01 19:12] LABS: #Basophils 0.1 thou/uL (0.0-0.2); #Eosinphils 0.1 thou/uL (0.0-0.7); #Lymphocytes 1.2 thou/uL (1.20-3.40); #Monocytes 0.5 thou/uL (0.11-0.59); #Neutrophils 3.3 thou/uL (1.40-6.50); %Lymphocytes 23.4 % (21.0-51.0); %Monocytes 9.8 % (0.0-10.0); %Neutrophils 63.8 % (42.0-75.0); Hemoglobin 12.2 g/dL (14.0-18.0); Mean Corpuscular HGB CONC 31.9 g/dL (32.0-36.0); Mean Corpuscular Hemoglobin 28.4 pg (27.0-31.0); Mean Platelet Volume 7.6 fL (7.4-10.4); Platelet Count 165 thou/uL (130-400); RBC Distribution Width 14.3 % (11.5-14.5); Red Blood Cell (RBC) Count 4.29 mill/uL (4.70-6.10); White Blood Cell (WBC) Count 5.1 thou/uL (4.8-10.8)
--- NOTE | 2017-07-01 19:20 | RAD ---
CHEST ONE VIEW: History: Cough. Comparison: 06-08-17 FINDINGS: Cardiac silhouette is magnified and enlarged. Pulmonary vasculature is upper limits of normal. There is patchy bibasilar infiltrates and bilateral pleural fluid that are similar in appearance to the pre vious exam. Stents projecting over the cardiac silhouette are apparent. child monitor leads overlie the chest. IMPRESSION: Bilateral pleural fluid and bibasilar infiltrates are unchanged in appearance from the 06-08-17 exam. POS: MARIA A
[2017-07-01 19:39] LABS: ALT (SGPT) 13 U/L (8-55); AST (SGOT) 13 U/L (5-34); Albumin 3.8 g/dL (3.4-4.8); Alkaline Phosphatase 115 U/L (40-150); Anion Gap 12 mmol/L (10-20); BUN (Urea Nitrogen) 43 mg/dL (8.4-25.7); Bilirubin, Total 0.3 mg/dL (0.2-1.2); CK (CPK) 21 U/L (30-200); Calc. Creatinine Clearance 0 mL/min (70-130); Calcium 9.5 mg/dL (7.8-10.44); Carbon Dioxide 25 mmol/L (23-31); Chloride 103 mmol/L (98-107); Estimated GFR-MDRD 43; Globulin 3.3 g/dL (2.4-3.5); Glucose 110 mg/dL (83-110); Potassium 4.3 mmol/L (3.5-5.1); Protein, Total 7.1 g/dL (5.8-8.1); Sodium 136 mmol/L (136-145)
[2017-07-01 19:42] LABS: CKMB 1.1 ng/mL (0-6.6); Troponin I 0.024 ng/mL (< 0.028)
[2017-07-01 22:27] LABS: Bilirubin Negative (Negative); Blood, Urine Small (Negative); Clarity TURBID (Clear); Glucose, Urine (Dipstick) Negative (Negative); Leukocyte Large (Negative); Nitrite Negative (Negative); Protein, Urine (Dipstick) Trace mg/dL (Neg-Trace); Specific Gravity, Urine 1.016 (1.002-1.036); Urobilinogen 0.2 mg/dL (0.2-1.0)
[2017-07-01 22:32] LABS: Bacteria/HPF 2+ HPF (None Seen); Hyaline Casts/LPF 0-3 HYALINE CAST LPF (0-3 Hyaline); Squamous Epithelial None Seen HPF (0-3)
[2017-07-01] MEDS ORDERED: Cefuroxime Axetil 250 MG TAB PO SCH (23:45)
--- NOTE | 2017-07-06 14:30 | EKG ---
Test Reason : WEAK Blood Pressure : / mmHG Vent. Rate : 090 BPM Atrial Rate : 133 BPM P-R Int : 000 ms QRS Dur : 108 ms QT Int : 400 ms P-R-T Axes : 000 -56 050 degrees QTc Int : 489 ms Undetermined rhythm Left axis deviation Prolonged QT Abnormal ECG Confirmed by NATASHA SOW, NILSON ([id number]), dictionary editor FARNAZ MIRELES ([id number]) on 07/06/2017 2:30:25 PM Referred By: Confirmed By:NILSON KAUR MD
== END 2017-07-02 00:55 | disposition home or self-care (01) ==
LOC: ERS 18:31
DX: N39.0 Urinary tract infection, site not specified (principal); M19.90 Unspecified osteoarthritis, unspecified site; I69.354 Hemiplegia and hemiparesis following cerebral infarction affecting left non-dominant side; I25.2 Old myocardial infarction; I11.0 Hypertensive heart disease with heart failure; I50.9 Heart failure, unspecified; E11.9 Type 2 diabetes mellitus without complications; N40.0 Benign prostatic hyperplasia without lower urinary tract symptoms; Z87.891 Personal history of nicotine dependence; Z79.82 Long term (current) use of aspirin; Z79.84 Long term (current) use of oral hypoglycemic drugs; Z79.899 Other long term (current) drug therapy
CPT/HCPCS: 36415; 71045; 80053; 80185; 81003; 81015; 82553; 84484; 85025; 93005; 94760

== ENCOUNTER 2017-07-25 21:21 | Emergency (ER) | payer MEDICARE ==
[2017-07-25 22:24] LABS: #Basophils 0.1 thou/uL (0.0-0.2); #Eosinphils 0.2 thou/uL (0.0-0.7); #Lymphocytes 1.3 thou/uL (1.20-3.40); #Monocytes 0.5 thou/uL (0.11-0.59); #Neutrophils 2.5 thou/uL (1.40-6.50); %Basophils 1.1 % (0.0-1.0); %Eosinophils 4.8 % (0.0-10.0); %Lymphocytes 27.6 % (21.0-51.0); %Monocytes 10.9 % (0.0-10.0); %Neutrophils 55.6 % (42.0-75.0); Hemoglobin 12.2 g/dL (14.0-18.0); Mean Corpuscular HGB CONC 33.3 g/dL (32.0-36.0); Mean Corpuscular Hemoglobin 29.1 pg (27.0-31.0); Mean Corpuscular Volume 87.5 fl (80.0-94.0); Mean Platelet Volume 7.6 fL (7.4-10.4); Platelet Count 151 thou/uL (130-400); RBC Distribution Width 14.3 % (11.5-14.5); Red Blood Cell (RBC) Count 4.19 mill/uL (4.70-6.10); White Blood Cell (WBC) Count 4.6 thou/uL (4.8-10.8)
[2017-07-25 22:48] LABS: ALT (SGPT) 7 U/L (8-55); AST (SGOT) 11 U/L (5-34); Albumin 3.4 g/dL (3.4-4.8); Alkaline Phosphatase 105 U/L (40-150); Anion Gap 15 mmol/L (10-20); BUN (Urea Nitrogen) 36 mg/dL (8.4-25.7); Bilirubin, Total 0.2 mg/dL (0.2-1.2); CK (CPK) 41 U/L (30-200); Calc. Creatinine Clearance 0 mL/min (70-130); Calcium 9.4 mg/dL (7.8-10.44); Carbon Dioxide 25 mmol/L (23-31); Chloride 101 mmol/L (98-107); Estimated GFR-MDRD 40; Glucose 161 mg/dL (83-110); Lipase 34 U/L (8-78); Potassium 3.7 mmol/L (3.5-5.1); Protein, Total 6.4 g/dL (5.8-8.1); Sodium 137 mmol/L (136-145)
[2017-07-25 22:50] LABS: CKMB 1.3 ng/mL (0-6.6); Troponin I 0.015 ng/mL (< 0.028)
--- NOTE | 2017-07-25 22:56 | RAD ---
RADIOGRAPH CHEST 1 VIEW: Date: 07/25/17 Time: 10:01 p.m. HISTORY: 86-year-old male with altered mental status, lethargy, and anorexia. COMPARISON: 07/01/17. FINDINGS: Severe blunting of the right lateral costophrenic angle and milder blunting of the left lateral costo phrenic angle. Adjacent apparently chronic air space densities in the bilateral lung bases. Cardiomeg rosemary. No pulmonary edema. Lung apices are clear. No pneumothorax. No interval change. IMPRESSION: 1. Chronic bilateral pleural effusions and/or pleural thickening, right worse than left. 2. Chronic air space densities in the bilateral lower lobes. 3. Cardiomegaly without congestive heart failure. 4. No interval change since 07/01/17. ROOPA [] POS: MARIA A
--- NOTE | 2017-07-25 23:41 | CT ---
CT BRAIN NONCONTRAST: 07/25/17 at 10:40 p.m. HISTORY: 86-year-old male with altered mental status and anorexia. FINDINGS: There is no midline shift or any other mass effect. There is no evidence of acute intracranial hemor rhage, obstructive hydrocephalus, or extraaxial fluid collection. The calvarium is intact. There is diffuse parenchymal volume loss. There are low attenuation areas in the white matter. These are no nspecific, but in a patient of this age, they are probably chronic ischemic white matter changes due to microvascular atherosclerosis. There is a small old infarction involving the periventricular white matter located slightly superior and lateral to the right caudate head. There is no interval change compared to 06/08/17. IMPRESSION: 1) No acute intracranial findings. 2) Involutional changes and chronic ischemic white matter changes. 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 joshua camacho POS: MARIA A
[2017-07-26 00:54] LABS: Bilirubin Negative (Negative); Blood, Urine Trace (Negative); Clarity CLEAR (Clear); Glucose, Urine (Dipstick) Negative (Negative); Leukocyte Trace (Negative); Nitrite Negative (Negative); Protein, Urine (Dipstick) Negative (Neg-Trace); Specific Gravity, Urine 1.014 (1.002-1.036); Urobilinogen 0.2 mg/dL (0.2-1.0)
[2017-07-26 00:56] LABS: Bacteria/HPF None Seen HPF (None Seen); Hyaline Casts/LPF 4-6 HYALINE CAST LPF (0-3 Hyaline); Pathc Cast-AUWi Flag 1.16 (0-2.49); Squamous Epithelial 0-3 HPF (0-3)
[2017-07-26 01:05] LABS: Oval Fat Bodies/HPF None Seen HPF (None Seen); Renal Epithelial None Seen HPF (0-3); Sperm/HPF None Seen HPF (None Seen); Transitional Epithelial NONE SEEN HPF (0-3); Trichomonas/HPF None Seen HPF (None Seen); Yeast-All Forms None Seen HPF (None Seen)
== END 2017-07-26 03:28 | disposition home or self-care (01) ==
LOC: ERS 21:21
DX: N39.0 Urinary tract infection, site not specified (principal); M19.90 Unspecified osteoarthritis, unspecified site; I11.0 Hypertensive heart disease with heart failure; I50.9 Heart failure, unspecified; I25.2 Old myocardial infarction; E11.9 Type 2 diabetes mellitus without complications; I69.354 Hemiplegia and hemiparesis following cerebral infarction affecting left non-dominant side; N40.0 Benign prostatic hyperplasia without lower urinary tract symptoms; Z79.82 Long term (current) use of aspirin; Z87.891 Personal history of nicotine dependence; Z79.84 Long term (current) use of oral hypoglycemic drugs; Z79.899 Other long term (current) drug therapy
CPT/HCPCS: 36415; 70450; 71045; 80053; 81003; 81015; 82550; 82553; 83605; 83690; 83880; 84484; 85025; 87086; 93005; 94760; 96360

== ENCOUNTER 2017-08-17 16:38 | Emergency (ER) | payer MEDICARE ==
--- NOTE | 2017-08-17 17:44 | RAD ---
THREE VIEWS OF THE RIGHT SHOULDER: 08/17/17 COMPARISON: None. HISTORY: Right shoulder pain today. FINDINGS: Three views of the right shoulder shows no evidence of acute fracture or dislocation. Mild degenerati ve changes are seen in the glenohumeral and acromioclavicular joints. The visualized right thorax is unremarkable. 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 POS: [facility]
[2017-08-17 18:40] LABS: #Eosinphils 0.1 thou/uL (0.0-0.7); #Lymphocytes 1.2 thou/uL (1.20-3.40); #Monocytes 0.5 thou/uL (0.11-0.59); #Neutrophils 4.2 thou/uL (1.40-6.50); %Basophils 0.4 % (0.0-1.0); %Eosinophils 1.6 % (0.0-10.0); %Lymphocytes 19.9 % (21.0-51.0); %Monocytes 7.7 % (0.0-10.0); %Neutrophils 70.3 % (42.0-75.0); Hemoglobin 12.1 g/dL (14.0-18.0); Mean Corpuscular HGB CONC 33.2 g/dL (32.0-36.0); Mean Corpuscular Hemoglobin 28.7 pg (27.0-31.0); Mean Corpuscular Volume 86.3 fl (80.0-94.0); Mean Platelet Volume 7.3 fL (7.4-10.4); Platelet Count 164 thou/uL (130-400); Red Blood Cell (RBC) Count 4.23 mill/uL (4.70-6.10); White Blood Cell (WBC) Count 5.9 thou/uL (4.8-10.8)
[2017-08-17 18:58] LABS: Anion Gap 15 mmol/L (10-20); BUN (Urea Nitrogen) 26 mg/dL (8.4-25.7); Calc. Creatinine Clearance 0 mL/min (70-130); Calcium 9.8 mg/dL (7.8-10.44); Carbon Dioxide 23 mmol/L (23-31); Chloride 107 mmol/L (98-107); Estimated GFR-MDRD 49; Glucose 152 mg/dL (83-110); Potassium 3.9 mmol/L (3.5-5.1); Sodium 141 mmol/L (136-145)
--- NOTE | 2017-08-17 19:04 | CT ---
CT OF THE BRAIN WITHOUT CONTRAST: 08/17/17 COMPARISON: 07/25/17 HISTORY: Altered mental status and right shoulder pain. Worsening dementia for the past few weeks. TECHNIQUE: Multiple contiguous axial images were obtained in a CT of the brain without contrast. FINDINGS: There is scattered hypodensities in the subcortical and periventricular white matter, likely seconda ry to small vessel ischemic disease. No large confluent infarction is seen. There is no evidence of h ydrocephalus. Intracranial hemorrhage or extra-axial fluid collection. The calvarium and overlying soft tissues are unremarkable. The visualized paranasal sinuses are well aerated. There is fluid within some of the left mastoid air cells. IMPRESSION: No evidence of acute intracranial abnormality. POS: [facility]
== END 2017-08-17 21:20 | disposition home or self-care (01) ==
LOC: ERS 16:38
DX: M19.011 Primary osteoarthritis, right shoulder (principal); D64.9 Anemia, unspecified; I48.91 Unspecified atrial fibrillation; E11.22 Type 2 diabetes mellitus with diabetic chronic kidney disease; I13.2 Hypertensive heart and chronic kidney disease with heart failure and with stage 5 chronic kidney disease, or end stage renal disease; I50.9 Heart failure, unspecified; N18.9 Chronic kidney disease, unspecified; N40.0 Benign prostatic hyperplasia without lower urinary tract symptoms; Z86.73 Personal history of transient ischemic attack (TIA), and cerebral infarction without residual deficits; Z87.891 Personal history of nicotine dependence
CPT/HCPCS: 36415; 70450; 80048; 85025; 93005